=== PATIENT | female | born 1980 | race African-American/Black ===

== ENCOUNTER → 2016-08-30 | Outpatient (CLI) | payer OTHER ==
--- NOTE | ~2016-08-30 | ST ---
Unit #: [id number] #: [id number] Patient: GLORIA MEYER [id number] [address] [address] [id number] O MR#: [id number] NAME: GLORIA MEYER : 1980 SEX: F STUDY DATE/TIME: 08/30/2016 UNIT: [facility] ROOM: STUDY DESCRIPTION: Attending Physician: Mayte Bryan Referring Physician: Mayte Bryan Primary Care Physician: Terra Mack M.D. CARDIOLOGY REPORT EXAM Stress ECG. INDICATION Chest pain. SUMMARY The patient exercised on a Audi protocol to maximal effort. Patient completed 9 minutes 21 seconds of exercise. The heart rate increased from 74 to 158 (87%) and blood pressure increased from 120/80 to 126/80. The resting ECG was normal. With stress, there was baseline artifact and J-point depression, but no diagnostic ST shifts. There were no dysrhythmias or heart block. IMPRESSION 1. Stress ECG shows no ischemia. 2. Good exercise tolerance. 3. Normal heart rate and blood pressure responses. 1. Dictated by... Keely Oquendo/leticia TD: 08/30/2016 20:33 JOB #: [id number] CARDIOLOGY REPORT Page 1 of 1 X Trent Virgen MD CARDIOLOGY REPORT
== END | disposition home or self-care (01) ==
LOC: CEKG 08-29 09:00
DX: R07.89 Other chest pain (principal)
CPT/HCPCS: 93017

== ENCOUNTER → 2016-10-02 | Outpatient (CLI) | payer OTHER ==
--- NOTE | ~2016-10-02 | CT16 ---
[facility] A Service of [facility] & [facility] RADIOLOGY TEXT RESULTS PATIENT: GLORIA MEYER LOCATION: CCAT : 82 UNIT #: [id number] AGE: [address]: Terra Mack MD SEX: F ORDER DR: [id number] [facility] [address] [place], [place] [address] [id number] O MR#: [id number] Acc #: [id number] NAME: GLORIA MEYER : 1980 SEX: F STUDY DATE/TIME: 10/02/2016 16:43 UNIT: [facility] ROOM: STUDY DESCRIPTION: CT Angio Chest for PE Attending Physician: Terra Mack M.D. Referring Physician: Terra Mack M.D. Ordering Physician: Terra Mack M.D. Primary Care Physician: Terra Mack M.D. MEDICAL IMAGING REPORT This report is preliminary unless electronic signature is present EXAM CT angiogram of the chest INDICATIONS Left-sided chest pain for 2 months and elevated D-dimer, pain has been intermittent. TECHNIQUE Axial CT images were obtained from the thoracic inlet through the dome of the diaphragm following the administration of intravenous contrast material. This CT exam was performed with one or more of the following radiation dose reduction techniques: Automatic exposure control, adjustment of mA and/or kV according to patient size, and iterative reconstruction. FINDINGS No acute pulmonary thromboembolus is seen. Examination was not optimized for evaluation of the thoracic aorta but it does measure within normal size limits. No definite dissection is seen. There is no pleural or pericardial effusion. The thyroid gland, trachea and esophagus appear unremarkable. Mediastinal lymph nodes do not appear pathologically enlarged. The patient has some nodular densities seen at the lung apices bilaterally. I suspect this is some evolving fibrotic change. Single largest area of nodularity measures about 9 mm in size. No focal areas of consolidation are seen. No acute abnormalities are seen within the upper abdomen. Review of bony windows does not demonstrate any aggressive osseous abnormalities. IMPRESSION 1. No acute pulmonary thromboembolus seen. 2. Thoracic aorta is normal in caliber. 3. No definite pulmonary infiltrates are seen. However, the patient does have some biapical areas of nodularity favored to represent STS. [facility] A Service of [facility] & [facility] RADIOLOGY TEXT RESULTS PATIENT: GLORIA MEYER LOCATION: CCAT : 82 UNIT #: [id number] AGE: [address]: Terra Mack MD SEX: F ORDER DR: apical fibrosis. Single largest area measures about 9 mm in size. I would suggest a follow-up CT in 3-6 months to document continuing stability. No acute abnormalities seen within the upper abdomen. Dictated by... Jazzy Leon M.D. THIS IS AN ELECTRONICALLY VERIFIED REPORT Jazzy Leon M.D. at 10/03/2016 12:53 PM AFF/psc TD: 10/03/2016 05:24 JOB #: [id number] MEDICAL IMAGING REPORT Page 1 of 1 COPY
== END | disposition home or self-care (01) ==
LOC: CCAT 13:08
DX: R07.9 Chest pain, unspecified (principal); R79.1 Abnormal coagulation profile; R91.1 Solitary pulmonary nodule
CPT/HCPCS: 71275; Q9967

== ENCOUNTER 2016-10-17 17:48 | Emergency (ER) | payer OTHER ==
--- NOTE | ~2016-10-17 | EKG ---
PATIENT: GLORIA MEYER UNIT #: [id number] Ventricular Rate: 55 BPM Atrial Rate: 55 BPM P-R Interval: 130 ms QRS Duration: 66 ms Q-T Interval: 450 ms QTC Calculation(Bezet): 430 ms P Blackey: 13 degrees Calculated R Blackey: 30 degrees Calculated T Blackey: 51 degrees Diagnosis Line: Sinus bradycardia Diagnosis Line: Low voltage QRS Diagnosis Line: Borderline ECG Diagnosis Line: No previous ECGs available Diagnosis Line: Confirmed by KIMBERLEE ROA MD ([id number]) on Diagnosis Line: 10/18/2016 8:22:50 AM INTERPRETING MD: JANINA FENTON
[2016-10-17 20:10] LABS: BASOPHIL% 0.5 % (0-2.5); EOSINOPHIL# 0.1 X10e3 (0-0.7); EOSINOPHIL% 2.9 % (0.0-7.0); HEMATOCRIT 41.8 % (35.0-45.0); HEMOGLOBIN 13.7 gm/dL (12.0-16.0); LYMPHOCYTE# 1.9 X10e3 (1.0-3.5); LYMPHOCYTE% 36.6 % (17.0-45.0); MEAN CELL VOLUME 89.2 FL (83-96); MEAN CORPUSCULAR HEMOGLOBIN 29.2 PG (28-34); MEAN CORPUSCULAR HGB CONC 32.7 g/dL (30-36); MEAN PLATELET VOLUME 8.5 FL (6.5-11.5); MONOCYTE# 0.6 X10e3 (0-1.0); MONOCYTE% 12.1 % (3.0-12.0); NEUTROPHIL# 2.4 X10e3 (1.5-7.1); NEUTROPHIL% 47.9 % (40-75); PLATELET COUNT 244 X10e3 (140-420); RED BLOOD COUNT 4.69 X10e (3.90-5.30); RED CELL DISTRIBUTION WIDTH 13.8 % (11.0-15.5); WHITE BLOOD COUNT 5.1 X10e3 (4.0-10.5)
[2016-10-17 20:11] LABS: DIFF IND NO
[2016-10-17 20:12] LABS: URINE SOURCE CLEAN CATCH
[2016-10-17 20:21] LABS: URINE APPEARANCE CLEAR; URINE BILIRUBIN NEG (NEG); URINE BLOOD NEG (NEG); URINE COLOR YELLOW; URINE GLUCOSE NEG (NEG); URINE KETONE NEG (NEG); URINE LEUKOCYTE ESTERASE NEG (NEG); URINE NITRATE NEG (NEG); URINE PH 6.5 (5-8); URINE PROTEIN NEG (NEG); URINE SPECIFIC GRAVITY 1.016 (1.003-1.035)
[2016-10-17 20:39] LABS: BUN/CREATININE RATIO 18.57; CALCIUM SERUM 9.2 mg/dL (8.4-10.2); CREATININE SERUM 0.7 mg/dL (0.6-1.4)
[2016-10-17 21:00] LABS: POC - CKMB 1.1 ng/mL (0.0-7.9); POC - TROPONIN <0.05 ng/mL (<=0.05)
== END 2016-10-17 21:10 | disposition home or self-care (01) ==
LOC: CED 17:48
PROVIDERS: Emergency Medicine
DX: R42 Dizziness and giddiness (principal); Z88.1 Allergy status to other antibiotic agents; F17.210 Nicotine dependence, cigarettes, uncomplicated
CPT/HCPCS: 36415; 80048; 81003; 82553; 84484; 84703; 85025; 93005; 96360; 99284